=== PATIENT | male | born 1995 | race Caucasian/White ===

== ENCOUNTER 2018-04-23 06:20 | Emergency (ER) | payer SELFPAY ==
[2018-04-23 06:24] VITALS: BP 156/91
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
[2018-04-23] MEDS ORDERED: CLINDAMYCIN 150 MG CAP PO ONE (06:35)
[2018-04-23] MEDS ORDERED: ACET/HYDROC 5/325MG TH ER ONLY 2 TAB/BOTTLE PO ONE (06:35)
[2018-04-23] MEDS ORDERED: LOR5/325 PO (06:38)
[2018-04-23] MEDS ORDERED: CLIN300C99 PO (06:38)
== END 2018-04-23 06:57 | disposition home or self-care (01) ==
LOC: ER 06:47
DX: K04.7 Periapical abscess without sinus (principal)
CPT/HCPCS: 99283

== ENCOUNTER 2018-05-08 19:09 | Emergency (ER) | payer SELFPAY ==
[~2018-05-08 19:09] MED LIST: CLIN300C99 PO; LOR5/325 PO
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
[2018-05-08 20:40] VITALS: BP 120/74
== END 2018-05-08 20:50 | disposition home or self-care (01) ==
LOC: ER 19:54
DX: S46.012A Strain of muscle(s) and tendon(s) of the rotator cuff of left shoulder, initial encounter (principal); V18.4XXA Pedal cycle driver injured in noncollision transport accident in traffic accident, initial encounter
CPT/HCPCS: 73030; 99283; A4565